=== PATIENT | female | born 1940 | race Caucasian/White ===

== ENCOUNTER → 2016-10-01 | Outpatient (CLI) | payer MEDICARE, BC | END | disposition home or self-care (01) | LOC: PCVCCLINIC 15:59 | PROVIDERS: ATTEND Internal Medicine Cardiovascular Disease | DX: R07.9 Chest pain, unspecified (principal); R00.2 Palpitations; R06.09 Other forms of dyspnea; R94.31 Abnormal electrocardiogram [ECG] [EKG]; Z79.82 Long term (current) use of aspirin | CPT/HCPCS: 93005; G0463 ==

== ENCOUNTER → 2016-11-11 | Outpatient (CLI) | payer MEDICARE, BC ==
[~2016-11-11] MED LIST: REGADENOSON 0.4 MG/5 ML DISP.SYRIN. IV ONE
--- NOTE | 2016-11-11 09:59 | PCVCIMAG ---
APPROVED REPORT Study performed: 11/11/2016 07:48:31 EXAM: Comprehensive 2D, Doppler, and color-flow Echocardiogram Patient Location: Echo lab Status: routine Other Information Study Quality: Good Indications Abnormal ECG Dyspnea Palpitations Hypertension/HDD 2D Dimensions LVEF(%): 53.43 (>50%) IVSd: 10.11 (7-11mm)LVOT Diam: 18.54 (18-24mm) LVDd: 39.72 mm PWd: 8.63 (7-11mm)Ascending Ao: 33.43 (22-36mm) LVDs: 28.94 (25-40mm) Left Atrium: 29.84 (27-40mm) Aortic Root: 24.52 mm LV Single Plane 4CH: 54.89 % LV Single Plane 2CH: 69.19 %Erazo's LVEF: 62.04 % Biplane EF: 61.7 % Volumes Left Atrial Volume (Systole) Single Plane 4CH: 24.39 mLSingle Plane 2CH: 27.14 mL LA ESV Index: 16.00 mL/m2 Aortic Valve AoV Peak Jeff.: 1.21 m/s AO Peak Gr.: 5.90 mmHgLVOT Max P.06 mmHg LVOT Max V: 1.01 m/s WILLIAM Vmax: 2.24 cm2 Mitral Valve E/A Ratio: 1.1 MV Decel. Time: 216.06 ms MV E Max Jeff.: 0.91 m/s MV A Jeff.: 0.82 m/s MV PHT: 62.66 ms IVRT: 128.03 ms TDI E/Medial E': 0.13 E': 8.00Medial E' Jeff.: 7.00 m/s Pulmonary Valve PV Peak Gr.: 1.64 mmHg Pulmonary Vein P Vein S: 0.74 m/sP Vein A: 0.39 m/s P Vein D: 0.62 m/sP Vein A Dur.: 65.7 msec P Vein S/D Ratio: 1.19 Tricuspid Valve TR Peak Jeff.: 2.56 m/s TR Peak Gr.: 26.22 mmHg Left Ventricle The left ventricle is normal size. There is normal LV segmental wall motion. There is normal left ventricular wall thickness. Left ventricular systolic function is normal. The left ventricular ejection fraction is within the normal range. LVEF is 55-60%. Right Ventricle The right ventricle is normal size. The right ventricular systolic function is normal. Atria The left atrium size is normal. The right atrium size is normal. Aortic Valve The aortic valve is normal in structure. No aortic regurgitation is present. There is no aortic valvular stenosis. Mitral Valve The mitral valve is normal in structure. Mild mitral regurgitation. No evidence of mitral valve stenosis. Tricuspid Valve The tricuspid valve is normal in structure. Mild to moderate tricuspid regurgitation. Pulmonary artery pressure measures 34mmhg. Pulmonic Valve The pulmonary valve is normal in structure. Trace pulmonic regurgitation. Great Vessels The aortic root is normal in size. IVC is normal in size and collapses with >50% inspiration Pericardium There is no pericardial effusion. <Conclusion> The left ventricle is normal size. Left ventricular systolic function is normal. The right ventricle is normal size. The right ventricular systolic function is normal. The left atrium size is normal. The aortic valve is normal in structure. Mild mitral regurgitation. Mild to moderate tricuspid regurgitation. Pulmonary artery pressure measures 34mmhg.
--- NOTE | 2016-11-11 11:16 | PCVCIMAG ---
APPROVED REPORT Exam: Nuclear Stress Test Indication: Palpitations , Chest pain , Dyspnea , Abnormal EKG Patient Location: Out-Patient Stress Nurse: Radha Manning RN, Zandra Wilson RN [place] Tech:MARILYN Day Ht: 5 ft 5 in Wt: 181 lbs BSA: 1.90 m2 HR: 76 bpm BP: 145/69 mmHg BMI: 30.1 Rhythm: NSR Medical History Medications: ASA 81 mg Allergies: No known drug allergies Cardiac Risk Factors: Age Pretest Chest Pain Characteristics: No chest pain Exercise History: Physically active Physical Disabilities: Knees Stress Test Details Stress Test: Pharmacologic stress was paired with low level exercise. Reason for pharmacologic stress test: physical limitation. HR Resting HR: 75 bpmMax Heart Rate (APMHR): 147 bpm Max HR Achieved: 117 bpmTarget HR (85% APMHR): 124 bpm % of APMHR: 79 Recovery HR: 95 bpm BP Resting BP: 145/69 mmHg Max BP: 141/80 mmHg Recovery BP: 146/77 mmHg ECG Resting ECG: Sinus Tachycardia, Sinus Rhythm Stress ECG: Sinus Tachycardia ST Change: Non-ischemic Arrhythmia: None Recovery ECG: Sinus Rhythm Clinical Reason for Termination: Completed protocol Stress Symptoms: Mild Dyspnea, resolved during recovery Exercise duration: 4 min sec Exercise capacity: 1.6 METs Symptoms resolved during recovery. NM EXAM: Myocardial Perfusion REST/STRESS Imaging Protocol: Rest Tc-99m/Stress Tc-99m 1 day Resting Data Rest SPECT myocardial perfusion imaging was performed in supine position 45 minutes following the intravenous injection of 10.8 mCi of Tc-99m Sestamibi. Time of rest injection: 829 Date: 11/11/2016 Pharmacologic Stress Pharmacologic stress test was performed by injecting Regadenoson 0.4 mg IV push followed by the intravenous injection of 34.3 mCi of Tc-99m Sestamibi. Time of stress injection: 944 Date: 11/11/2016 Administration Route: IV Administration Site: Right Hand Gated Stress SPECT was performed 45 minutes after stress injection. The images were gated to evaluate regional wall motion and calculate left ventricular ejection fraction. Study Quality Study: Good Study Data Post stress, the left ventricular ejection was 72%.. SSS: 0 SRS: 0 SDS: 0 TID = 0.97. Perfusion Normal perfusion on both the stress and rest images. Wall Motion Normal left ventricular wall motion. Clinical Findings: Nondiagnostic EKG Findings: Nonischemic Nuclear Conclusion This study is of low probability for inducible ischemia or prior infarct. Normal global and segmental LV systolic function.
== END | disposition home or self-care (01) ==
LOC: PCVCIMAG 07:40
PROVIDERS: ATTEND Internal Medicine Cardiovascular Disease
DX: I08.1 Rheumatic disorders of both mitral and tricuspid valves (principal); R00.2 Palpitations; I47.1 Supraventricular tachycardia; R94.31 Abnormal electrocardiogram [ECG] [EKG]; Z79.82 Long term (current) use of aspirin; Z79.899 Other long term (current) drug therapy
CPT/HCPCS: 78452; 93017; 93306; A9500; G0463; J2785